=== PATIENT | female | born 1945 | race Caucasian/White ===

== ENCOUNTER 2019-07-19 16:41 | Emergency (ER) | payer OTHER, MEDICARE ==
[2019-07-19] MEDS ORDERED: FENTANYL CITR 100 MCG/2 ML ONE (18:10)
[2019-07-19 18:32] LABS: Absolute Lymphocytes (CBC) 0.9 K/uL (0.7-4.9); Basophils % 1.3 % (0-1.3); Hematocrit 33.4 % (36.0-45.0); Lymphocytes % 23.1 % (15.3-44.8); MPV 9.7 fL (7.6-11.3); RBC Red Blood Cell Count 4.68 M/uL (3.86-4.86)
--- NOTE | 2019-07-19 18:47 | RAD REPORT ---
EXAM DESCRIPTION: RAD - Tib Fib Right - 07/19/2019 5:53 pm CLINICAL HISTORY: Right leg pain status post fall FINDINGS: No fracture is seen
[2019-07-19 18:49] LABS: Potassium 3.9 mmol/L (3.5-5.1)
[2019-07-19 18:56] LABS: Protime INR 1.35
--- NOTE | 2019-07-19 19:22 | RAD REPORT ---
EXAM DESCRIPTION: RAD - Femur Right - 07/19/2019 5:53 pm CLINICAL HISTORY: Right leg pain FINDINGS: No fracture is seen.
--- NOTE | 2019-07-19 19:22 | RAD REPORT ---
EXAM DESCRIPTION: CT - Head C Spine Cap Wo Con - 07/19/2019 7:04 pm TECHNIQUE: Computed axial tomography of the head and cervical spine was obtained. Coronal and sagitt al reconstruction was performed Computed axial tomography of the chest, abdomen and pelvis was obtained. Contrast was not requested. All CT scans are performed using dose optimization technique as appropriate and may include automated exposure control or mA/KV adjustment according to patient size. CLINICAL HISTORY: Head and neck injury with chest and abdominal pain status post fall COMPARISON: none FINDINGS: Right parietal scalp swelling without an underlying skull fracture An intracranial bleed is not seen. The ventricles are normal in caliber. An extra-axial fluid collection is not noted. . Fluid within the sinuses/mastoids is not seen. A cervical fracture is not seen. No dislocation is noted. Spondylosis The evaluation of mediastinum, deshaun, vessels, solid organs and bowel are limited secondary to the lac k of contrast administration. A mediastinal hematoma is not noted. A pleural effusion is not seen. A lung contusion is not present. A thoracic aortic stent in place The liver,spleen, pancreas, kidneys and bladder do not demonstrate an attic injury. Mild splenomegaly . Cholelithiasis without gallbladder wall thickening IMPRESSION: 1. No acute intracranial abnormality is seen. 2. A cervical fracture is not visualized. 3. No traumatic abnormality involving the chest/abdomen/pelvis.
--- NOTE | 2019-07-19 19:22 | RAD REPORT ---
EXAM DESCRIPTION: RAD - Pelvis - 07/19/2019 5:53 pm CLINICAL HISTORY: Pelvic pain status post injury FINDINGS: No fracture or dislocation is seen.
--- NOTE | 2019-07-19 19:23 | RAD REPORT ---
EXAM DESCRIPTION: Dwayne Single View07/19/2019 5:53 pm CLINICAL HISTORY: Chest pain COMPARISON: None FINDINGS: The lungs appear clear of acute infiltrate. The heart is mildly to moderately enlarged. Postsurgical changes involve the chest. Pacemaker leads in place IMPRESSION: No acute abnormalities displayed
--- NOTE | 2019-07-19 19:23 | RAD REPORT ---
EXAM DESCRIPTION: RAD - Shoulder Left 2 View - 07/19/2019 5:53 pm CLINICAL HISTORY: Left shoulder pain status post fall FINDINGS: No fracture or dislocation is seen.
--- NOTE | 2019-07-19 19:49 | ER ---
Nurse's Notes [facility] Name: Chrissy Gonzalez Age: 73 yrs Sex: Female : 1945 Arrival Date: 07/19/2019 Time: 16:43 Bed 27 Private MD: Diagnosis: Fall (on) (from) other stairs and steps;Unspecified injury of head-scalp hematoma;Contusion of lower leg;Pain in left shoulder-from fall Presentation: 07/19 17:10 Presenting complaint: Patient states: She tripped at 1515 today and fell down 7 to 8 aj1 stairs. Patient reports that she hit her head. Takes Elliquis. Denies LOC, vomiting. Hematoma noted to back of head. Trauma alert called. Patient also reports right hip pain, left shoulder pain, right knee pain, and pain in her chest where her pacemaker is. Bruising noted to right knee. 17:10 Care prior to arrival: None. Mechanism of Injury: Fall down 8 steps. Trauma event aj1 details: Injury occurred in the [facility]. 17:10 Acuity: MARIA GUADALUPE 2 aj1 17:10 Method Of Arrival: Wheelchair aj1 17:33 Transition of care: patient was not received from another setting of care. Onset of aj1 symptoms was July 19, 2019 at 15:15. Risk Assessment: Do you want to hurt yourself or someone else? Patient reports no desire to harm self or others. Initial Sepsis Screen: Does the patient meet any 2 criteria? No. Patient's initial sepsis screen is negative. Does the patient have a suspected source of infection? No. Patient's initial sepsis screen is negative. Triage Assessment: 17:36 General: Appears in no apparent distress. comfortable, Behavior is calm, cooperative, aj1 appropriate for age. Pain: Complains of pain in scalp, anterior aspect of left upper chest, right hip, anterior aspect of left shoulder, posterior aspect of left shoulder and lateral aspect of right knee. Neuro: Level of Consciousness is awake, alert, obeys commands, Denies LOC, vomiting. Cardiovascular: Patient's skin is warm and dry. Respiratory: Airway is patent Respiratory effort is even, unlabored, Respiratory pattern is regular, symmetrical. Historical: - Allergies: 17:36 PENICILLINS; aj1 17:36 Sulfa (Sulfonamide Antibiotics); aj1 17:36 Tape; aj1 - Home Meds: 17:36 Lipitor Oral [Active]; Eliquis oral oral [Active]; carvedilol oral oral [Active]; aj1 losartan oral oral [Active]; levothyroxine oral [Active]; Januvia oral oral [Active]; Calcium Carbonate Oral [Active]; multivitamin oral oral [Active]; - PMHx: 17:36 Pacemaker; Myocardial infarction; triple bypass; valve replacement; Hypertension; aj1 Diabetes - NIDDM; Hypothyroidism; Hyperlipidemia; CHF; - PSHx: 17:36 Hysterectomy; neck surgery; aj1 - Immunization history:: Flu vaccine is up to date. - Social history:: Smoking status: Patient/guardian denies using tobacco. - Ebola Screening: : Patient denies travel to an Ebola-affected area in the 21 days before illness onset. Screenin:10 Abuse screen: Denies threats or abuse. Denies injuries from another. Tuberculosis aj1 screening: No symptoms or risk factors identified. 17:30 Fall Risk Fall in past 12 months (25 points). Secondary diagnosis (15 points) impaired rv mobility, No IV (0 pts). Ambulatory Aid- None/Bed Rest/Nurse Assist (0 pts). Gait- Impaired (20 pts.). Mental Status- Oriented to own ability (0 pts). Total Myles Fall Scale indicates High Risk Score (45 or more points). 17:30 Nutritional screening: No deficits noted. rv Primary Survey: 17:10 NO uncontrolled hemorrhage observed. A: The patient is alert. Airway: patent. aj1 Breathing/Chest: Respiratory pattern: regular, Respiratory effort: spontaneous, unlabored. Circulation: Skin color: pink. Disability Alert. 18:14 Exposure/Environment: All clothing and personal items were removed. Forensic evidence rv collection is not deemed to be indicated at this time. Items placed in patient belonging bag. There is no evidence of uncontrolled external bleeding. No obvious injuries are noted at this time. A warming method has been applied: A warm blanket has been provided to the patient. Assessment: 17:50 General: Appears in no apparent distress. comfortable, Behavior is calm, cooperative. rv Pain: Complains of pain in HEAD, LEFT SHOULDER, RIGHT KNEE. Neuro: Level of Consciousness is awake, alert, obeys commands, Oriented to person, place, time, situation. Cardiovascular: Patient's skin is warm and dry. Respiratory: Airway is patent. GI: No signs and/or symptoms were reported involving the gastrointestinal system. : No signs and/or symptoms were reported regarding the genitourinary system. EENT: No signs and/or symptoms were reported regarding the EENT system. Derm: Skin is intact. Musculoskeletal: Parent/caregiver report the patient having pain in right leg and anterior aspect of left shoulder and anterior aspect of left upper chest. 19:00 Reassessment: patient keeps on moving the head and neck with neck brace on. reiterated rv the need for neck brace and plan of care. awaiting CT scan result. 19:00 Reassessment: CT scan result came back negative. referred to Neto Serrano, neck brace rv taken off. ovidio wrap applied to right leg. Vital Signs: 17:10 BP 111 / 65; Pulse 74; Resp 18; Temp 97.2; Pulse Ox 99% on R/A; Weight 60.33 kg (R); aj1 Height 5 ft. 0 in. (152.40 cm); 17:25 BP 103 / 64; Pulse 72; Resp 15; Temp 98.5(O); Pulse Ox 100% on R/A; rv 18:30 BP 121 / 63; Pulse 71; Resp 14; Pulse Ox 100% ; rv 19:30 BP 118 / 66; Pulse 68; Resp 15; Pulse Ox 100% on R/A; rv 20:15 BP 124 / 68; Pulse 66; Resp 15; Pulse Ox 100% on R/A; rv 17:10 Body Mass Index 25.97 (60.33 kg, 152.40 cm) aj1 [place] Coma Score: 17:10 Eye Response: spontaneous(4). Verbal Response: oriented(5). Motor Response: obeys aj1 commands(6). Total: 15. Trauma Score (Adult): 17:10 Eye Response: spontaneous(1); Verbal Response: oriented(1); Motor Response: obeys aj1 commands(2); Systolic BP: > 89 mm Hg(4); Respiratory Rate: 10 to 29 per min(4); Phylicia Score: 15; Trauma Score: 12 ED Course: 16:43 Patient arrived in ED. as 17:10 Patient has correct armband on for positive identification. aj1 17:10 Patient maintains SpO2 saturation greater than 95% on room air. aj1 17:18 Neto Serrano PA is PHCP. cp 17:18 Delta Hicks MD is Attending Physician. cp 17:24 David Gann, RN is Primary Nurse. rv 17:32 Triage completed. aj1 17:36 Arm band placed on Patient Patient triaged in ER bed 27. aj1 17:52 Inserted saline lock: 18 gauge in right forearm, using aseptic technique. Blood rv collected. 17:53 XRAY Shoulder LEFT 2 view In Process Unspecified. EDMS 17:53 XRAY Pelvis In Process Unspecified. EDMS 17:53 XRAY Femur RIGHT In Process Unspecified. EDMS 17:53 XRAY Tib Fib RIGHT In Process Unspecified. EDMS 17:53 Chest Single View In Process Unspecified. EDMS 18:15 Thermoregulation: warm blanket given to patient. rv 19:04 Head C Spine Cap Wo Con In Process Unspecified. EDMS 20:31 No provider procedures requiring assistance completed. IV discontinued, intact, rv bleeding controlled, No redness/swelling at site. Administered Medications: 18:14 Drug: fentaNYL (PF) 25 mcg Route: IVP; Site: right forearm; rv 20:30 Follow up: Response: No adverse reaction; Marked relief of symptoms; Pain is unchanged, rv physician notified Outcome: 19:48 Discharge ordered by MD. cp 20:32 Discharged to home via wheelchair, with family. rv 20:32 Condition: good 20:32 Discharge instructions given to patient, family, Instructed on discharge instructions, follow up and referral plans. Demonstrated understanding of instructions, follow-up care. 20:37 Patient left the ED. rv Signatures: Dispatcher [employer] EDMai Olivas RN RN aj1 Violetta Cedillo as Neto Serrano PA PA cp David Gann, RN RN rv Corrections: (The following items were deleted from the chart) 17:32 17:00 Presenting complaint: Patient states: She tripped at 1515 today and fell down 7 aj1 to 8 stairs. Patient reports that she hit her head. Takes Elliquis. Denies LOC, vomiting. Hematoma noted to back of head. Trauma alert called. Patient also reports right hip pain, left shoulder pain, right knee pain, and pain in her chest where her pacemaker is. Bruising noted to right knee. aj1
--- NOTE | 2019-07-19 19:50 | EDPHYS ---
Physician Documentation [facility] Name: Chrissy Gonzalez Age: 73 yrs Sex: Female : 1945 Arrival Date: 07/19/2019 Time: 16:43 Bed 27 Private MD: ED Physician Delta Hicks HPI: 07/19 17:40 This 73 yrs old Female presents to ER via Wheelchair with complaints of Fall cp Injury, Headache. 17:40 Details of fall: The patient fell from a height, down approximately 8 stairs, and cp struck a concrete surface. 17:40 Onset: The symptoms/episode began/occurred today, at 15:15. Associated injuries: The cp patient sustained injury to the head, hematoma, injury to the chest, tenderness, left shoulder, painful injury, right lower leg, ecchymosis, hematoma, painful injury. Severity of symptoms: in the emergency department the symptoms are unchanged. Historical: - Allergies: 17:36 PENICILLINS; aj1 17:36 Sulfa (Sulfonamide Antibiotics); aj1 17:36 Tape; aj1 - Home Meds: 17:36 Lipitor Oral [Active]; Eliquis oral oral [Active]; carvedilol oral oral [Active]; aj1 losartan oral oral [Active]; levothyroxine oral [Active]; Januvia oral oral [Active]; Calcium Carbonate Oral [Active]; multivitamin oral oral [Active]; - PMHx: 17:36 Pacemaker; Myocardial infarction; triple bypass; valve replacement; Hypertension; aj1 Diabetes - NIDDM; Hypothyroidism; Hyperlipidemia; CHF; - PSHx: 17:36 Hysterectomy; neck surgery; aj1 - Immunization history:: Flu vaccine is up to date. - Social history:: Smoking status: Patient/guardian denies using tobacco. - Ebola Screening: : Patient denies travel to an Ebola-affected area in the 21 days before illness onset. ROS: 17:45 Constitutional: Negative for body aches, chills, fever, poor PO intake. cp 17:45 Eyes: Negative for injury, pain, redness, and discharge. cp 17:45 ENT: Negative for drainage from ear(s), ear pain, sore throat, difficulty swallowing, difficulty handling secretions. 17:45 Neck: Negative for stiffness. 17:45 Cardiovascular: Positive for chest pain, Negative for palpitations. 17:45 Respiratory: Negative for cough, shortness of breath, wheezing. 17:45 Abdomen/GI: Negative for abdominal pain, vomiting, diarrhea, constipation, black/tarry stool, rectal bleeding. 17:45 Back: Negative for decreased range of motion. 17:45 Neuro: Negative for altered mental status, loss of consciousness, syncope, weakness. 17:45 All other systems are negative. Exam: 17:50 Constitutional: The patient appears in no acute distress, alert, awake, cp non-diaphoretic, non-toxic, well developed, well nourished. 17:50 Head/face: Noted is hematoma, that is moderate, of the left occipital area, cp tenderness, that is mild. 17:50 Eyes: Periorbital structures: appear normal, Pupils: equal, round, and reactive to light and accomodation, Extraocular movements: intact throughout, Conjunctiva: normal, no exudate, no injection, Lids and lashes: appear normal, bilaterally. 17:50 ENT: External ear(s): are unremarkable, Ear canal(s): are normal, clear, TM's: bulging, is not appreciated, bilaterally, dullness, bilaterally, erythema, is not appreciated, bilaterally, Nose: is normal, Mouth: Lips: moist, Oral mucosa: pink and intact, moist, Posterior pharynx: is normal, airway is patent, no erythema, no exudate. 17:50 Neck: C-spine: C-collar placed in ED, vertebral tenderness, is not appreciated, crepitus, is not appreciated. 17:50 Chest/axilla: Inspection: normal, Palpation: crepitus, is not appreciated, tenderness, that is mild, of the anterior aspect of left upper chest. 17:50 Cardiovascular: Rate: normal, Rhythm: regular, Pulses: Pulses are 2+ in right radial artery and left radial artery. Edema: is not appreciated, JVD: is not appreciated. 17:50 Respiratory: the patient does not display signs of respiratory distress, Respirations: normal, no use of accessory muscles, no retractions, no splinting, no tachypnea, labored breathing, is not present, Breath sounds: are clear throughout, no decreased breath sounds, no stridor, no wheezing. 17:50 Abdomen/GI: Inspection: abdomen appears normal, Bowel sounds: active, all quadrants, Palpation: soft, in all quadrants, nontender, in all quadrants, rebound tenderness, is not appreciated, involuntary guarding, is not appreciated. 17:50 Back: pain, is absent, ROM is normal, vertebral tenderness, is not appreciated, Straight leg raises: of both lower extremities does not illicit pain. 17:50 Musculoskeletal/extremity: Extremities: grossly normal except: noted in the right lower leg: ecchymosis, swelling, tenderness, Joints: All joints are normal except the right hip displays painful range of motion, the left shoulder displays painful range of motion. 17:50 Neuro: Orientation: to person, place \T\ time. Mentation: is normal, Cerebellar function: is grossly normal, Motor: moves all fours, strength is normal, Sensation: is normal. Vital Signs: 17:10 BP 111 / 65; Pulse 74; Resp 18; Temp 97.2; Pulse Ox 99% on R/A; Weight 60.33 kg (R); aj1 Height 5 ft. 0 in. (152.40 cm); 17:25 BP 103 / 64; Pulse 72; Resp 15; Temp 98.5(O); Pulse Ox 100% on R/A; rv 18:30 BP 121 / 63; Pulse 71; Resp 14; Pulse Ox 100% ; rv 19:30 BP 118 / 66; Pulse 68; Resp 15; Pulse Ox 100% on R/A; rv 20:15 BP 124 / 68; Pulse 66; Resp 15; Pulse Ox 100% on R/A; rv 17:10 Body Mass Index 25.97 (60.33 kg, 152.40 cm) aj1 Phylicia Coma Score: 17:10 Eye Response: spontaneous(4). Verbal Response: oriented(5). Motor Response: obeys aj1 commands(6). Total: 15. Trauma Score (Adult): 17:10 Eye Response: spontaneous(1); Verbal Response: oriented(1); Motor Response: obeys aj1 commands(2); Systolic BP: > 89 mm Hg(4); Respiratory Rate: 10 to 29 per min(4); Phylicia Score: 15; Trauma Score: 12 MDM: 17:31 Patient medically screened. cp 17:50 Differential diagnosis: closed head injury, contusion, fracture, multiple trauma. cp 19:47 Data reviewed: vital signs, nurses notes. cp 19:47 Counseling: I had a detailed discussion with the patient and/or guardian regarding: the cp historical points, exam findings, and any diagnostic results supporting the discharge/admit diagnosis, lab results, radiology results, to return to the emergency department if symptoms worsen or persist or if there are any questions or concerns that arise at home. Response to treatment: the patient's symptoms have markedly improved after treatment. ED course: VSS. Radiology studies negative for significant trauma. Will discharge to home with head injury precautions for continued monitoring. 07/19 17:36 Order name: Basic Metabolic Panel; Complete Time: 18:51 cp 07/19 18:51 Interpretation: Normal except: GLUC 188; BUN 73; CRE 1.81; GFR 27. cp 07/19 17:36 Order name: CBC with Diff 07/19 19:37 Interpretation: Normal except: WBC 4.0; HGB 10.5; HCT 33.4; MCV 71.3; MCH 22.4; MCHC cp 31.4; PLT 106; RDW 16.6; MN% 16.3. 07/19 17:36 Order name: Creatinine for Radiology; Complete Time: 18:51 cp 07/19 17:36 Order name: PT-INR; Complete Time: 19:37 cp 07/19 17:36 Order name: Ptt, Activated; Complete Time: 19:37 cp 07/19 17:36 Order name: XRAY Shoulder LEFT 2 view; Complete Time: 19:37 cp 07/19 17:36 Order name: XRAY Pelvis; Complete Time: 19:37 cp 07/19 17:36 Order name: XRAY Femur RIGHT; Complete Time: 19:37 cp 07/19 17:36 Order name: XRAY Tib Fib RIGHT; Complete Time: 19:37 cp 07/19 17:50 Order name: Chest Single View; Complete Time: 19:37 EDMS 07/19 18:53 Order name: Head C Spine Cap Wo Con; Complete Time: 19:37 EDMS 07/19 17:36 Order name: Labs collected and sent; Complete Time: 17:50 cp Administered Medications: 18:14 Drug: fentaNYL (PF) 25 mcg Route: IVP; Site: right forearm; rv 20:30 Follow up: Response: No adverse reaction; Marked relief of symptoms; Pain is unchanged, rv physician notified Disposition: 21:00 Chart complete. cp Disposition: 07/19/19 19:48 Discharged to Home. Impression: Fall (on) (from) other stairs and steps, Unspecified injury of head - scalp hematoma, Contusion of lower leg, Pain in left shoulder - from fall. - Condition is Stable. - Discharge Instructions: Head Injury, Adult, Hematoma, Shoulder Pain, Shoulder Range of Motion Exercises. - Medication Reconciliation Form, Thank You Letter, Antibiotic Education, Prescription Opioid Use form. - Follow up: Private Physician; When: 2 - 3 days; Reason: Recheck today's complaints. - Problem is new. - Symptoms have improved. Addendum: 07/22/2019 09:07 Co-signature as Attending Physician, Delta Hicks MD I agree with the assessment and k dr plan of care. Signatures: Dispatcher [employer] EDMS Mai Mancilla RN RN aj1 Delta Hicks MD MD kdr Neto Serrano PA PA cp David Gann RN RN rv Corrections: (The following items were deleted from the chart) 07/19 18:53 17:37 Head C Spine CAP W Con+CT.RAD.BRZ ordered. EDMS EDMS 20:30 17:36 EKG - Nurse/Tech ordered. cp rv 20:37 19:48 07/19/2019 19:48 Discharged to Home. Impression: Fall (on) (from) other stairs rv and steps; Unspecified injury of head - scalp hematoma; Contusion of lower leg; Pain in left shoulder - from fall. Condition is Stable. Forms are Medication Reconciliation Form, Thank You Letter, Antibiotic Education, Prescription Opioid Use. Follow up: Private Physician; When: 2 - 3 days; Reason: Recheck today's complaints. Problem is new. Symptoms have improved. cp
[2019-07-19 22:09] VITALS: TEMP 98.5; O2SAT 100
[2019-07-19 22:13] LABS: Blood Morphology Comment NOTED (NOT SEEN); Platelet Estimate DECR
[2019-07-19 22:14] LABS: Anisocytosis 1+; Ovalocytes SLIGHT; Poikilocytosis SLIGHT; Polychromasia SLIGHT
[2019-07-19 22:19] VITALS: BP 124/68
== END 2019-07-19 20:37 | disposition home or self-care (01) ==
LOC: ER 16:41
DX: S00.03XA Contusion of scalp, initial encounter (principal); S80.11XA Contusion of right lower leg, initial encounter; M25.512 Pain in left shoulder; W10.9XXA Fall (on) (from) unspecified stairs and steps, initial encounter; Y93.9 Activity, unspecified; Y92.9 Unspecified place or not applicable; I10 Essential (primary) hypertension; E11.9 Type 2 diabetes mellitus without complications; E03.9 Hypothyroidism, unspecified; I25.2 Old myocardial infarction; I50.9 Heart failure, unspecified; Z79.01 Long term (current) use of anticoagulants; Z88.0 Allergy status to penicillin; Z88.2 Allergy status to sulfonamides; Z95.0 Presence of cardiac pacemaker; Z95.1 Presence of aortocoronary bypass graft; Z95.4 Presence of other heart-valve replacement; Z91.048 Other nonmedicinal substance allergy status
CPT/HCPCS: 85025; 80048; 36415; 85610; 82962; 85730; 70450; 71250; 72125; 71045; 72170; 73030; 73552; 73590; 96374; 99284; J3010; 93005